=== PATIENT | male | born 1965 | race American Indian/Alaskan Native ===

== ENCOUNTER 2017-11-30 11:56 | Emergency (ER) | payer MEDICAID, OTHER ==
[2017-11-30 12:01] VITALS: RESP 18; O2SAT 100
--- NOTE | 2017-11-30 14:33 | RAD ---
Date of service: 11/30/2017 PROCEDURE: Radiographs of neck/soft tissues HISTORY: throat pain, ? foreign body COMPARISON: None available. TECHNIQUE: Frontal and lateral radiographs of the neck. FINDINGS: No fracture is visualized. The visualized soft tissues are unremarkable. IMPRESSION: No radiopaque foreign body.
--- NOTE | 2017-11-30 14:34 | RAD ---
Date of service: 11/30/2017 PROCEDURE: Radiographs of the chest and abdomen (obstructive series) HISTORY: abd pain, vomiting COMPARISON: No prior. TECHNIQUE: AP radiograph of the chest, with upright and supine radiographs of the abdomen. FINDINGS: CHEST: Lungs: Clear. Cardiovascular: Prominence of the ascending aorta. Heart size within normal limits. Pleura: No pleural fluid. No pneumothorax. Other findings: None. ABDOMEN AND PELVIS: Bowel: Unremarkable bowel gas pattern. No evidence of mechanical obstruction. Free air: None. Bones: Unremarkable. Other findings: None. IMPRESSION: Prominence of the ascending aorta for which aortic ectasia or aneurysmal dilatation cannot be excluded. Unremarkable bowel gas pattern.
--- NOTE | 2017-11-30 14:49 | C.PDOC ---
History Of Present Illness 52 y/o male presents to ED with c/o intermittent difficulty swallowing "for several months". Patient states he feels like food is getting stuck and unable to go down. Patient report symptoms began after shrimp tail got stuck in throat 1 year ago. Patient is unable to eat much secondary to symptoms and admits to weight loss. Patient denies sob, chest pain, nausea, vomiting or any other complaints at this time. Time Seen by Provider: 11/30/17 13:18 Chief Complaint (Nursing): Abdominal Pain History Per: Patient History/Exam Limitations: no limitations Onset/Duration Of Symptoms: Days Current Symptoms Are (Timing): Still Present Past Medical History Reviewed: Historical Data, Nursing Documentation, Vital Signs Vital Signs: Last Vital Signs Temp 98.7 F 11/30/17 14:57 Pulse 83 11/30/17 14:57 Resp 18 11/30/17 14:57 BP 163/102 H 11/30/17 14:57 Pulse Ox 100 11/30/17 15:13 - Medical History PMH: Gastritis, HTN Surgical History: No Surg Hx Family History: States: No Known Family Hx - Social History Hx Tobacco Use: Yes Hx Alcohol Use: No Hx Substance Use: No - Immunization History Hx Tetanus Toxoid Vaccination: No Hx Influenza Vaccination: No Hx Pneumococcal Vaccination: No Review Of Systems Constitutional: Negative for: Fever, Chills ENT: Positive for: Throat Pain Cardiovascular: Negative for: Chest Pain Respiratory: Negative for: Cough, Shortness of Breath Gastrointestinal: Negative for: Nausea, Vomiting Skin: Negative for: Rash Physical Exam - Physical Exam Appears: Non-toxic, No Acute Distress Skin: Warm, Dry, No Rash Head: Atraumatic, Normacephalic Eye(s): bilateral: Normal Inspection Oral Mucosa: Moist Throat: Normal, No Erythema, No Exudate Neck: Normal ROM, Supple Chest: Symmetrical, No Tenderness Cardiovascular: Rhythm Regular, No Friction Rub, No Murmur Respiratory: Normal Breath Sounds, No Rales, No Rhonchi, No Wheezing Gastrointestinal/Abdominal: Bowel Sounds (normal), Soft, No Tenderness, No Guarding, No Rebound Back: Normal Inspection, No CVA Tenderness Neurological/Psych: Oriented x3, Normal Speech, Normal Cognition, Normal Motor, Normal Sensation Gait: Steady ED Course And Treatment O2 Sat by Pulse Oximetry: 100 (RA) Pulse Ox Interpretation: Normal - Other Rad Obstructive series X-Ray: Viewed By Me, Read By Radiologist Interpretation: IMPRESSION: Prominence of the ascending aorta for which aortic ectasia or aneurysmal dilatation cannot be excluded. Unremarkable bowel gas pattern. Soft tissue neck X-Ray: Viewed By Me, Read By Radiologist Interpretation: IMPRESSION: No radiopaque foreign body. Medical Decision Making Medical Decision Making: On re-exam, Ambulatory in the ED with steady gait. Lungs are CTA, heart is RRR , abdomen is soft, non-tender and the patient is tolerating PO well. Follow up with the medical doctor within 1-2 days, return if worsened. The patient was instructed that the best exam for esophageal is having an endoscopy and the patient was referred to the clinic to follow up with GI. Disposition - Disposition Referrals: [facility] [Outside] Disposition: HOME/ ROUTINE Disposition Time: 14:46 Condition: GOOD Additional Instructions: Follow up with the medical clinic within 1-2 days. This may be gastritis/esophageal stricture and an endoscopy may be needed. return if worsened. Prescriptions: Famotidine [Pepcid] 20 mg PO DAILY #30 tab Instructions: Esophageal Stricture, Gastritis (DC) Forms: [employer] (Swedish) - Clinical Impression Clinical Impression: Esophageal stricture - PA / [employer]PER[employer] WINTER / Resident Statement MD/DO has reviewed & agrees with the documentation as recorded. - Scribe Statement The provider has reviewed the documentation as recorded by the Alejandro Nichols All medical record entries made by the Papaibantonella were at my direction and personally dictated by me. I have reviewed the chart and agree that the record accurately reflects my personal performance of the history, physical exam, medical decision making, and the department course for this patient. I have also personally directed, reviewed, and agree with the discharge instructions and disposition.
[2017-11-30 14:58] VITALS: BP 163/102; PULSE 83; TEMP 98.7
== END 2017-11-30 15:02 | disposition home or self-care (01) ==
LOC: C.ER 11:56
DX: K22.2 Esophageal obstruction (principal); I10 Essential (primary) hypertension; Z72.0 Tobacco use